=== PATIENT | female | born 1945 | race Caucasian/White ===

== ENCOUNTER 2017-10-24 08:21 | Emergency (ER) | payer OTHER, BC ==
[~2017-10-24] VITALS: Ht 149.9 cm; Wt 72.0 kg
[~2017-10-24 08:21] MED LIST: ARIMIDEX1 MG PO; Arimidex PO; BENEFIBER PA1 PACKET PO; BENEFIBER1 EACH; CALCIUM 500 +1 EAC2 PO; CALCIUM CARBON600 M1 PO; CLARINEX5 MG PO; COLACE100 MG PO; ESSENTIAL ONE1 EACH PO; FISH OIL500 MG PO; Fish Oil PO; Flonase BOTH NARES; Levaquin PO; Lovenox SC; MOTRIN600 MG PO; Omega III EPA + DHA PO; Oscal 500 w/Vitamin PO; PHENERGAN-CODE120 ML PO; PREDNISONE20 MG PO; PROMETHAZINE HC25 M1 PO; THERAGRAN1 TABLET PO; Theragran PO; Tylenol Extra Streng PO; VERAMYST10 GM NS; WELCHOL PO; WELCHOL625 MG PO; WYGESIC,DARV1 TABLET PO
[2017-10-24 09:10] LABS: HEMATOCRIT 42.2 % (36.0-46.0); HEMOGLOBIN 14.6 G/DL (11.9-15.5); MCH 32.7 PG (29.0-34.0); MCHC 34.6 G/DL (30.0-36.0); MCV 94.6 FL (83-99); PLATELET COUNT 269 K/uL (156-360); RBC DIS.WIDTH-CV 12.9 % (11.8-14.6); RBC DIS.WIDTH-SD 44.6 % (39-53); RED BLOOD COUNT 4.46 M/uL (3.80-5.20); WHITE BLOOD COUNT 7.9 K/uL (4.1-10.2)
[2017-10-24 09:19] LABS: CHLORIDE 107 mEq/L (99-109); POTASSIUM 3.9 mEq/L (3.7-5.4); SODIUM 138 mEq/L (136-147)
[2017-10-24 09:21] LABS: GLUCOSE 91 mg/dL (70-99)
[2017-10-24 09:25] LABS: CREATININE 0.9 mg/dL (0.6-1.3); GFR ESTIMATE (CALCULATED) > 59 mL/min/
[2017-10-24 09:26] LABS: UREA NITROGEN (BUN) 19 mg/dL (9-23)
[2017-10-24 09:31] LABS: TROP-I INTERPRETATION NEGATIVE; TROPONIN-I < 0.01 ng/mL (0.0-0.30)
[2017-10-24 10:50] LABS: TROP-I INTERPRETATION NEGATIVE; TROPONIN-I < 0.01 ng/mL (0.0-0.30)
[2017-10-24] MEDS ORDERED: ULTRAM50 MG PO (11:02)
[2017-10-24 11:32] VITALS: BP 139/92
== END 2017-10-24 11:50 | disposition home or self-care (01) ==
LOC: EME 08:21
PROVIDERS: Emergency Medicine
DX: R07.89 Other chest pain (principal); E78.5 Hyperlipidemia, unspecified; K21.9 Gastro-esophageal reflux disease without esophagitis; F32.9 Major depressive disorder, single episode, unspecified; Z86.711 Personal history of pulmonary embolism; Z85.3 Personal history of malignant neoplasm of breast; Z92.21 Personal history of antineoplastic chemotherapy; Z88.8 Allergy status to other drugs, medicaments and biological substances
CPT/HCPCS: 71046; 80048; 84484; 85027; 85379; 93005; 99281; 99285